=== PATIENT | male | born 1965 | race Caucasian/White ===

== ENCOUNTER 2016-08-07 20:02 | Emergency (ER) | payer MEDICAID ==
[2016-08-07] MEDS ORDERED: ASPIRIN 81 MG TABLET, CHEWABLE PO ONE (20:23)
--- NOTE | 2016-08-07 20:23 | ER Document Report ---
ED Medical Screen (RME) - General Stated Complaint: RIGHT SHOULDER PAIN Notes: 50 yo male c/o right shoulder pain since this afternoon. lifted arm to get into shirt, felt a pop with acute pain to anterior shoulder. Also c/o heaviness in chest x 2 weeks. Feels like he's drowning. intermittant left sided chest pain. + smoker. mild cough. + hx/o HTN, DM ne meds. 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 TRAVEL OUTSIDE OF THE [place] IN LAST 30 DAYS: No - Related Data Allergies/Adverse Reactions: Penicillins Allergy (Verified 02/24/15 21:53) Anaphylaxis Sulfa (Sulfonamide Antibiotics) Allergy (Verified 02/24/15 21:53) EYE SWELLING Past Medical History - Past Medical History Cardiac Medical History: Reports: Hx Hypercholesterolemia, Hx Hypertension Endocrine Medical History: Reports: Hx Diabetes Mellitus Type 2 Psychiatric Medical History: Reports: Hx Depression Past Surgical History: Reports: Hx Appendectomy, Hx Bowel Surgery, Hx Cholecystectomy, Hx Neurologic Surgery, Hx Orthopedic Surgery - spine, Hx Tonsillectomy - Immunizations Hx Diphtheria, Pertussis, Tetanus Vaccination: Yes
--- NOTE | 2016-08-07 21:45 | EKG REPORT ---
SEVERITY:- ABNORMAL ECG - SINUS TACHYCARDIA LVH WITH IVCD, LAD AND SECONDARY REPOL ABNRM : Confirmed by: Peyton Newby 07-Aug-2016 21:44:21
[2016-08-07 21:48] LABS: ABSOLUTE BASOPHILS # (AUTO) 0.1 10^3/uL (0.0-0.2); ABSOLUTE EOSINOPHILS # (AUTO) 0.1 10^3/uL (0.0-0.6); ABSOLUTE LYMPHOCYTES (AUTO) 3.3 10^3/uL (0.5-4.7); ABSOLUTE MONOCYTES (AUTO) 0.9 10^3/uL (0.1-1.4); ABSOLUTE NEUT (AUTO) 12.3 10^3/uL (1.7-8.2); BASOPHILS % (AUTO) 0.7 % (0-2); EOSINOPHILS % (AUTO) 0.6 % (0-6); HEMATOCRIT 50.2 % (37.9-51.0); HEMOGLOBIN 16.7 g/dL (13.5-17.0); HGB HCT DIFFERENCE -0.1; LYMPHOCYTES % (AUTO) 19.6 % (13-45); MEAN CORPUSCULAR HEMOGLOBIN 28.5 pg (27.0-33.4); MEAN CORPUSCULAR HGB CONC 33.2 g/dL (32.0-36.0); MEAN CORPUSCULAR VOLUME 86 fl (80-97); MONOCYTES % (AUTO) 5.4 % (3-13); RED BLOOD COUNT 5.86 10^6/uL (4.35-5.55); SEGMENTED NEUTROPHILS % (AUTO) 73.7 % (42-78); WHITE BLOOD COUNT 16.7 10^3/uL (4.0-10.5)
[2016-08-07] MEDS ORDERED: OXYCODONE-ACETAMINOPHEN 5-325 MG TABLET PO ONE (21:51)
--- NOTE | 2016-08-07 21:57 | ER Document Report ---
ED Extremity Problem, Upper - General Mode of Arrival: Ambulatory Information source: Patient TRAVEL OUTSIDE OF THE [place] IN LAST 30 DAYS: No - HPI Patient complains to provider of: Pain Onset: This afternoon Recent injury: Possibly Where: Indoors - Putting on shirt. Exacerbated by: Movement <JONATHAN MORA - Last Filed: 08/08/16 02:48> <CHUCK SHERSTHA - Last Filed: 08/08/16 03:43> - General Chief Complaint: Shoulder Pain Stated Complaint: RIGHT SHOULDER PAIN Notes: Patient is a 50-year-old male presenting to the emergency department concerned of right shoulder pain onset approximately noon when he was trying to put on a shirt and hurt his shoulder crack. Patient states the pain is and stent. Patient also states that he has had chest tightness for the past 3-4 weeks, but this is not unusual for him. Patient has a history of stroke in January 2002 and associated left-sided weakness. Patient states that he takes pain medication from pain management for his chronic back pain. (JONATHAN MORA) - Related Data Allergies/Adverse Reactions: Penicillins Allergy (Verified 08/07/16 20:23) Anaphylaxis Sulfa (Sulfonamide Antibiotics) Allergy (Verified 08/07/16 20:23) EYE SWELLING Past Medical History - General Information source: Patient - Social History Smoking Status: Current Every Day Smoker Cigarette use (# per day): Yes Chew tobacco use (# tins/day): No Frequency of alcohol use: Occasional Drug Abuse: None Family History: Reviewed & Not Pertinent Patient has suicidal ideation: No Patient has homicidal ideation: No - Past Medical History Cardiac Medical History: Reports: Hx Hypercholesterolemia, Hx Hypertension Neurological Medical History: Reports: Hx Cerebrovascular Accident Endocrine Medical History: Reports: Hx Diabetes Mellitus Type 2 Renal/ Medical History: Denies: Hx Peritoneal Dialysis Psychiatric Medical History: Reports: Hx Depression Past Surgical History: Reports: Hx Appendectomy, Hx Bowel Surgery, Hx Cholecystectomy, Hx Neurologic Surgery, Hx Orthopedic Surgery - spine, Hx Tonsillectomy - Immunizations Hx Diphtheria, Pertussis, Tetanus Vaccination: Yes <JONATHAN MORA - Last Filed: 08/08/16 02:48> Review of Systems - Review of Systems Constitutional: No symptoms reported EENT: No symptoms reported Cardiovascular: See HPI, Other - Chest tightness (not unusual for patient) Respiratory: No symptoms reported Gastrointestinal: No symptoms reported Genitourinary: No symptoms reported Male Genitourinary: No symptoms reported Musculoskeletal: See HPI, Other - Right shoulder pain Skin: No symptoms reported Hematologic/Lymphatic: No symptoms reported Neurological/Psychological: No symptoms reported -: Yes All other systems reviewed and negative <JONATHAN MORA - Last Filed: 08/08/16 02:48> Physical Exam - Vital signs Interpretation: Hypertensive, Tachycardic - General General appearance: Alert - HEENT Head: Normocephalic, Atraumatic Eyes: Normal Pupils: PERRL - Respiratory Respiratory status: No respiratory distress Chest status: Nontender Breath sounds: Normal Chest palpation: Normal - Cardiovascular Rhythm: Regular Heart sounds: Normal auscultation Murmur: No - Abdominal Inspection: Normal Distension: No distension Bowel sounds: Normal Tenderness: Nontender Organomegaly: No organomegaly - Back Back: Normal, Nontender - Extremities General lower extremity: Normal inspection, Nontender, Normal color, Normal ROM , Normal temperature Shoulder: Tender - Right shoulder tenderness to palpation. No: Limited ROM - Neurological Neuro grossly intact: Yes Cognition: Normal [place] Coma Scale Eye Opening: Spontaneous [place] Coma Scale Verbal: Oriented [place] Coma Scale Motor: Obeys Commands [place] Coma Scale Total: 15 Speech: Normal - Psychological Associated symptoms: Normal affect, Normal mood - Skin Skin Temperature: Warm Skin Moisture: Dry Skin Color: Normal <JONATHAN MORA - Last Filed: 08/08/16 02:48> Course - Laboratory Result Diagrams: 08/07/16 21:00 08/07/16 22:55 - Consults [facility] Time consulted: 00:25 - Called to transfer patient Dr. Mendoza Time consulted: 01:08 <JONATHAN MORA - Last Filed: 08/08/16 02:48> - Laboratory Result Diagrams: 08/07/16 21:00 08/07/16 22:55 - Diagnostic Test Radiology reviewed: Reports reviewed - EKG Interpretation by Al EKG shows normal: Sinus rhythm Rate: Normal Rhythm: NSR <CHUCK SHRESTHA - Last Filed: 08/08/16 03:43> - Re-evaluation Re-evalutation: 08/08/16 03:41 Patient presents with shoulder pain and ongoing chest pain for the last 3 weeks. No acute findings on x-rays. LVH on EKG. Patient's chest pain resolved after 3 sublingual nitroglycerin. Patient has a history of CVA, hypertension, high cholesterol, and diabetes. Patient has not had any workup for chest pain. Patient was found to have a troponin of 0.3. Repeat is 0.33. Concern is a patient is having unstable angina/NSTEMI. Patient was discussed with Dr. Mendoza at [facility] except the patient for transfer. Recommends Plavix, Lovenox. Patient is already been given aspirin. Patient agrees with this plan. Stable at the time of transfer. Grateful for care. Of note, EKG has been repeated 3 times with no change. (CHUCK SHRESTHA) - Vital Signs Vital signs: Temp Pulse Resp BP Pulse Ox 98.0 F 103 H 20 155/109 H 94 08/07/16 20:18 08/07/16 20:18 08/08/16 02:01 08/08/16 02:00 08/08/16 02:01 - Laboratory Laboratory results interpreted by ut: 08/07/16 08/07/16 08/07/16 21:00 22:55 22:55 WBC 16.7 H RBC 5.86 H Absolute Neutrophils 12.3 H Chloride 97 L Glucose 255 H Calcium 10.4 H Urine Glucose (UA) >=500 H - Consults Dr. Mendoza Reason for consultation: 08/08/16 01:[address] Mendoza about patient's case. Dr. Mendoza agrees to accept the pation, but wants repeat cardiac enzymes so that he can know where to put the patient. 08/08/16 02:[address] Mendoza to give the results of the repeat cardiac enzymes. [facility] agrees to accept the patient. (JONATHAN MORA) Critical Care Note - Critical Care Note Total time excluding time spent on procedures (mins): 45 - evaluation and management of chest pain, multiple re-evaluations, coordination with transfer to tertiary care, counseling of patient, multiple re-evaluations <CHUCK SHRESTHA - Last Filed: 08/08/16 03:43> Discharge <JONATHAN MORA - Last Filed: 08/08/16 02:48> <CHUCK SHRESTHA - Last Filed: 08/08/16 03:43> - Discharge Clinical Impression: NSTEMI (non-ST elevated myocardial infarction) Shoulder pain, right Qualifiers: Chronicity: acute Qualified Code(s): M25.511 - Pain in right shoulder Condition: Stable Disposition: [facility] Kessler Attestation: 08/08/16 03:43 I personally performed the services described in the documentation, reviewed and edited the documentation which was dictated to the scribe in my presence, and it accurately records my words and actions. (CHUCK SHRESTHA) Scribe Documentation - Scribe Written by Scribe:: Jonathan Mora 08/07/2016 2153 acting as scribe for :: Joey <JONATHAN MORA - Last Filed: 08/08/16 02:48>
[2016-08-07 23:10] LABS: APPEARANCE,URINE CLEAR; BILIRUBIN,URINE NEGATIVE (NEGATIVE); GLUCOSE, URINE >=500 mg/dL (NEGATIVE); KETONES,URINE NEGATIVE (NEGATIVE); LEUKOCYTE ESTERASE,URINE NEGATIVE (NEGATIVE); NITRITE,URINE NEGATIVE (NEGATIVE); PROTEIN,URINE NEGATIVE (NEGATIVE); URINE SPECIFIC GRAVITY 1.006; UROBILINOGEN,URINE NEGATIVE mg/dL (<2.0)
[2016-08-07 23:28] LABS: ALANINE AMINOTRANSFERASE 21 U/L (21-72); ALBUMIN 4.4 g/dL (3.5-5.0); ALKALINE PHOSPHATASE 89 U/L (38-126); ANION GAP 11 (5-19); ASPARTATE AMINO TRANSFERASE 21 U/L (17-59); BILIRUBIN,TOTAL 0.9 mg/dL (0.2-1.3); BLOOD UREA NITROGEN 8 mg/dL (7-20); CALCIUM 10.4 mg/dL (8.4-10.2); CARBON DIOXIDE 30 mmol/L (22-30); CHLORIDE 97 mmol/L (98-107); CREATINE KINASE 56 U/L (55-170); CREATININE RESULT 0.58 mg/dL (0.52-1.25); GLUCOSE 255 mg/dL (75-110); LIPASE 61.3 U/L (23-300); POTASSIUM 3.9 mmol/L (3.6-5.0); SODIUM 138.2 mmol/L (137-145); TOTAL PROTEIN 7.7 g/dL (6.3-8.2)
[2016-08-07 23:39] LABS: CREATINE KINASE MB 1.57 ng/mL (<4.55)
[2016-08-07 23:44] LABS: TROPONIN I 0.302 ng/mL
[2016-08-08] MEDS ORDERED: NITROGLYCERIN 0.4 MG/TAB 25 TAB/BOTTLE SL PRN (00:02)
[2016-08-08] MEDS ORDERED: ASPIRIN 81 MG TABLET, CHEWABLE ONE (00:11)
[2016-08-08 02:21] LABS: CREATINE KINASE MB 1.49 ng/mL (<4.55); TROPONIN I 0.335 ng/mL
[2016-08-08] MEDS ORDERED: ENOXAPARIN SODIUM INJ 100 MG/1 ML DISP.SYRIN SUBCUT ONE (02:43)
[2016-08-08] MEDS ORDERED: CLOPIDOGREL BISULFATE 300 MG TABLET PO ONE (02:44)
--- NOTE | 2016-08-08 07:41 | ER Document Report ---
Doctor's Note Notes: 08/08/16 07:39 Patient's care was turned over to me this morning. He is waiting transfer to [facility] for chest pain with elevated troponins. He is asleep at this time. He has removed the monitor connections and blood pressure cuff. Review of his vital signs shows his blood pressure has been quite high during his stay here and he has not received any medication for that blood pressure. I requested he be put back on the monitor so I can see what his blood pressure and pulse are at this time and treat his elevated blood pressure prior to transfer. The patient was awakened by the nurse to put the monitoring equipment back on. The patient is complaining of pain in his shoulder. He will be given Lopressor and fentanyl for her blood pressure and pain. Transport is due to arrive in the next few minutes.
[2016-08-08] MEDS ORDERED: METOPROLOL TARTRATE PF/INJ 5 MG/5 ML SDV IV ONE (07:44)
[2016-08-08] MEDS ORDERED: FENTANYL CITRATE INJ/PF 100 MCG/2 ML AMPUL IV ONE (07:44)
[2016-08-08] MEDS ORDERED: ONDANSETRON HCL INJ/PF 4 MG/2 ML SDV IV ONE (07:45)
[2016-08-08] MEDS ORDERED: CLOPIDOGREL BISULFATE 300 MG TABLET ONE (07:50)
--- NOTE | 2016-08-08 10:23 | EKG REPORT ---
SEVERITY:- ABNORMAL ECG - SINUS RHYTHM PROBABLE LEFT ATRIAL ABNORMALITY LVH WITH IVCD, LAD AND SECONDARY REPOL ABNRM : Confirmed by: Peyton Newby 08-Aug-2016 10:22:06
[2016-08-09 17:04] VITALS: BP 180/110
== END 2016-08-08 08:05 | disposition short-term general hospital (02) ==
LOC: ER 20:02
DX: I21.4 Non-ST elevation (NSTEMI) myocardial infarction (principal); M25.511 Pain in right shoulder; R07.89 Other chest pain; I51.7 Cardiomegaly; R00.0 Tachycardia, unspecified; I10 Essential (primary) hypertension; E11.9 Type 2 diabetes mellitus without complications; F17.210 Nicotine dependence, cigarettes, uncomplicated; I69.354 Hemiplegia and hemiparesis following cerebral infarction affecting left non-dominant side; M54.9 Dorsalgia, unspecified; G89.29 Other chronic pain; Z79.899 Other long term (current) drug therapy; Z88.2 Allergy status to sulfonamides; Z87.892 Personal history of anaphylaxis; Z88.0 Allergy status to penicillin
CPT/HCPCS: 93005 ×2; 99291; 96374; 96375; 36415; 82553; 82550; 83690; 85025; 80053; 81001; 84484; 71020; 73030; 93010 ×2; J3490 ×3; J3010; J2405; J1650

== ENCOUNTER 2018-07-23 10:18 | Inpatient (IN) | payer MEDICARE ==
[2018-07-23] MEDS ORDERED: NORMAL SALINE 500 ML IV ONE (11:28)
[2018-07-23 12:22] LABS: HEMOGLOBIN 12.8 g/dL (13.5-17.0); MEAN CORPUSCULAR HEMOGLOBIN 28.4 pg (27.0-33.4); MEAN CORPUSCULAR HGB CONC 33.7 g/dL (32.0-36.0); MEAN CORPUSCULAR VOLUME 84 fl (80-97); PLATELET COUNT 349 10^3/uL (150-450); RED CELL DISTRIBUTION WIDTH 13.6 % (11.5-14.0); WHITE BLOOD COUNT 22.3 10^3/uL (4.0-10.5)
--- NOTE | 2018-07-23 12:33 | RADIOLOGY REPORT (SQ) ---
EXAM DESCRIPTION: FOOT RIGHT COMPLETE COMPLETED DATE/TIME: 07/23/2018 12:24 pm REASON FOR STUDY: eval for osteomyelitis COMPARISON: None. NUMBER OF VIEWS: Three views. TECHNIQUE: AP, lateral and oblique radiographic images acquired of the right foot. LIMITATIONS: None. FINDINGS: MINERALIZATION: Normal. BONES: No acute fracture or dislocation. No worrisome bone lesions. JOINTS: No effusions. SOFT TISSUES: No soft tissue swelling. No foreign body. OTHER: No other significant finding. IMPRESSION: NEGATIVE STUDY OF THE RIGHT FOOT. NO RADIOGRAPHIC EVIDENCE OF ACUTE INJURY. TECHNICAL DOCUMENTATION: JOB ID: [id number] [employer]- All Rights Reserved Reading location - IP/workstation name: [email or web address]
[2018-07-23 12:55] LABS: ALANINE AMINOTRANSFERASE 11 U/L (21-72); ALBUMIN 4.3 g/dL (3.5-5.0); ALKALINE PHOSPHATASE 122 U/L (38-126); ANION GAP 9 (5-19); ASPARTATE AMINO TRANSFERASE 19 U/L (17-59); BILIRUBIN,DIRECT 0.2 mg/dL (0.0-0.4); BILIRUBIN,TOTAL 0.4 mg/dL (0.2-1.3); BLOOD UREA NITROGEN 12 mg/dL (7-20); C-REACTIVE PROTEIN 50.8 mg/L (<10.0); CALCIUM 9.3 mg/dL (8.4-10.2); CARBON DIOXIDE 31 mmol/L (22-30); CHLORIDE 97 mmol/L (98-107); GLUCOSE 217 mg/dL (75-110); POTASSIUM 4.1 mmol/L (3.6-5.0); TOTAL PROTEIN 7.7 g/dL (6.3-8.2)
[2018-07-23] MEDS ORDERED: VANCOMYCIN HCL INJ 1000 MG VIAL IV ONE (13:02)
[2018-07-23] MEDS ORDERED: MEROPENEM 1 GM VIAL IV ONE (13:02)
[2018-07-23 13:16] LABS: ABSOLUTE LYMPHOCYTES# (MANUAL) 1.8 10^3/uL (0.5-4.7); ABSOLUTE MONOCYTES # (MANUAL) 1.3 10^3/uL (0.1-1.4); ABSOLUTE NEUTROPHILS# (MANUAL) 19.2 10^3/uL (1.7-8.2); BASOPHILS % (MANUAL) 0 % (0-2); EOSINOPHILS % (MANUAL) 0 % (0-6); LYMPHOCYTES % (MANUAL) 8 % (13-45); MONOCYTES % (MANUAL) 6 % (3-13); SEGMENTED NEUTROPHILS % (MAN) 86 % (42-78); TOTAL CELLS COUNTED 100
--- NOTE | 2018-07-23 13:19 | ER Document Report ---
ED General - General Chief Complaint: Skin Problem Stated Complaint: TOE PROBLEM Time Seen by Provider: 07/23/18 11:20 Primary Care Provider: JUNE SAWANT FNP-C [Primary Care Provider] - Follow up as needed TRAVEL OUTSIDE OF THE [place] IN LAST 30 DAYS: No - HPI Notes: Patient presents to the emergency department for evaluation of a right foot infection. He states he has had a wound on his right fifth foot for approximately 1 month. He states is been worse over the last 2-3 days. He has wounds to his second and third toes from his dog stepping on his foot as well. He has had increased redness and low-grade fevers recently. He has no idea what his blood sugars been running. He has been compliant with his medications. - Related Data Allergies/Adverse Reactions: Penicillins Allergy (Verified 08/07/16 20:23) Anaphylaxis Sulfa (Sulfonamide Antibiotics) Allergy (Verified 08/07/16 20:23) EYE SWELLING Past Medical History - General Information source: Patient, Relative - Spouse - Social History Smoking Status: Current Every Day Smoker Chew tobacco use (# tins/day): No Drug Abuse: None Family History: Reviewed & Not Pertinent Patient has suicidal ideation: No Patient has homicidal ideation: No - Past Medical History Cardiac Medical History: Reports: Hx Hypercholesterolemia, Hx Hypertension Neurological Medical History: Reports: Hx Cerebrovascular Accident Endocrine Medical History: Reports: Hx Diabetes Mellitus Type 2 Renal/ Medical History: Denies: Hx Peritoneal Dialysis Psychiatric Medical History: Reports: Hx Depression Past Surgical History: Reports: Hx Appendectomy, Hx Bowel Surgery, Hx Cardiac Surgery, Hx Cholecystectomy, Hx Neurologic Surgery, Hx Orthopedic Surgery - spine, Hx Tonsillectomy - Immunizations Hx Diphtheria, Pertussis, Tetanus Vaccination: Yes Review of Systems - Review of Systems Constitutional: Chills, Fever Musculoskeletal: See HPI Skin: See HPI -: Yes All other systems reviewed and negative Physical Exam - Vital signs Vitals: Temp Pulse Resp BP Pulse Ox 99.1 F 98 14 152/88 H 98 07/23/18 10:26 07/23/18 10:26 07/23/18 10:26 07/23/18 10:26 07/23/18 10:26 Interpretation: Hypertensive - Notes Notes: Vital signs reviewed, please refer to chart. Patient is normocephalic, atraumatic. Pupils equal round, reactive to light. Neck is supple without meningismus. Heart is regular rate and rhythm. Lungs are clear to auscultation bilaterally. Abdomen is soft, nontender, normoactive bowel sounds throughout. Extremities without cyanosis, clubbing. Peripheral pulses are equal. Skin is warm and dry. Patient is awake, alert, neurological exam is nonfocal. Lamination of the right lower extremity is 2+ pitting edema to the pretibial region. Posterior calf is nontender. He has significant maceration and erythema over the fifth toe with diminished sensation. He has erythema that tracks up to the lateral malleolus. He has small superficial wounds noted on the dorsum of the second and third digits of the right foot. Dorsalis pedis pu lses 1+. Course - Re-evaluation Re-evalutation: 07/23/18 13:34 Patient presents to the emergency department for evaluation of an obvious foot infection. He obviously has a cellulitis but I am concerned about the possibility of an osteomyelitis. He has a markedly elevated white count. CRP is elevated to 50. X-rays failing to show any signs of acute osteomyelitis, but of course this is not significantly sensitive. He is penicillin allergic so medicated here with Merrem and vancomycin. Blood cultures are pending at this time. Will admit him for further care. - Vital Signs Vital signs: Temp Pulse Resp BP Pulse Ox 99.1 F 98 14 152/88 H 98 07/23/18 10:26 07/23/18 10:26 07/23/18 10:26 07/23/18 10:26 07/23/18 10:26 - Laboratory Result Diagrams: 07/23/18 12:00 07/23/18 12:00 Laboratory results interpreted by me: 07/23/18 07/23/18 12:00 12:00 WBC 22.3 H Hgb 12.8 L Seg Neuts % (Manual) 86 H Lymphocytes % (Manual) 8 L Abs Neuts (Manual) 19.2 H Chloride 97 L Carbon Dioxide 31 H Glucose 217 H ALT 11 L C-Reactive Protein 50.8 H - Diagnostic Test Radiology reviewed: Reports reviewed - No evidence for osteomyelitis Discharge - Discharge Clinical Impression: Diabetic foot infection Cellulitis Qualifiers: Site of cellulitis of extremity: lower extremity Condition: Stable Disposition: ADMITTED INPATIENT Admitting Provider: Hospitalist - [facility] Unit Admitted: Medical Floor Referrals: GILBERT,STORMY, PROGRAM CHECKER-C [Primary Care Provider] - Follow up as needed
[2018-07-23 13:21] LABS: TOXIC GRANULATION SLIGHT; TOXIC VACUOLATION PRESENT
[2018-07-23 13:22] LABS: PLATELET COMMENT ADEQUATE; RBC MORPHOLOGY COMMENT NORMO-CYTIC/CHROMIC
[2018-07-23] MEDS ORDERED: OXYCODONE-ACETAMINOPHEN 5-325 MG TABLET PO PRN (15:59)
[2018-07-23] MEDS ORDERED: ONDANSETRON 4 MG TAB.RAPDIS PO PRN (15:59)
[2018-07-23] MEDS ORDERED: ACETAMINOPHEN 325 MG TABLET PO PRN (15:59)
--- NOTE | 2018-07-23 16:27 | PDOC H&P ---
History of Present Illness Admission Date/PCP: 07/23/18 14:04 FLAVIA PIPER Patient complains of: DIABETIC FOOT INFECTION History of Present Illness: ANNE-MARIE AGUDELO is a 52 year old male with a PMH of CAD, diabetes, CVA, 5 vessel CABG, HTN, HLD, chronic back pain. The patient presented to [facility] with a 3-week history of an open wound to the right fifth toe. The patient states he attempted to treat the wound at home using [id number] antibiotic ointment. He states his wound became 'necrotic' 2 days ago, which prompted him to come to the emergency department. Laboratory studies indicative of leukocytosis (WBC 22). Remaining studies, including CBC and chemistry are relatively benign. X- ray of right foot is normal, no evidence of osteomyelitis. The patient was empirically treated with vancomycin IV and meropenem IV in the emergency department. Upon assessment, the patient is resting comfortably in bed. He endorses mild pain to the right toe, states his pain is exacerbated upon ambulation. There is mild erythema to the dorsal aspect of the right foot. A sizable wound covers the anterior surface of the right fifth toe. There appears to be eschar vs. necrosis to the wound. There is no visible drainage. The wound is not malodorous. Plan to consult Ortho surgery and admit to hospitalist service for infected diabetic ulcer. Past Medical History Past Medical History: CHRONIC BACK PAIN. Cardiac Medical History: Reports: Coronary Artery Disease, Hyperlipidema, Hypertension Neurological Medical History: Reports: Ischemic CVA Endocrine Medical History: Reports: Diabetes Mellitus Type 2 Psychiatric Medical History: Reports: Depression Past Surgical History Past Surgical History: Reports: Appendectomy, Cholecystectomy, Coronary Artery Bypass Graft - 5 VESSEL, Orthopedic Surgery - spine, Tonsillectomy Social History Information Source: Patient Lives with: Family Smoking Status: Current Every Day Smoker Cigarettes Packs Per Day: 2 Number of Years Smokin Frequency of Alcohol Use: None Hx Recreational Drug Use: No Hx Prescription Drug Abuse: No - Advance Directive Resuscitation Status: Full Code Family History Family History: CAD, DM Parental Family History Reviewed: Yes Children Family History Reviewed: Yes Sibling(s) Family History Reviewed.: Yes Medication/Allergy Home Medications: Acetaminophen [Tylenol 325 mg Tablet] 325 mg PO Q6HP PRN 07/23/18 Aspirin [Aspirin 325 mg Tablet] 325 mg PO QHS 07/23/18 Atorvastatin Calcium [Lipitor 20 mg Tablet] 20 mg PO QHS 07/23/18 Carvedilol [Coreg 6.25 mg Tablet] 6.25 mg PO Q12 07/23/18 Cetirizine HCl [Zyrtec 10 mg Tablet] 1 tab PO DAILY 07/23/18 Furosemide [Lasix 40 mg Tablet] 40 mg PO QAM 07/23/18 Glipizide [Glocotrol 10 Mg Tablet] 10 mg PO DAILY 07/23/18 Linaclotide [Linzess 145 Mcg Capsule] 145 mcg PO DAILY 07/23/18 Lisinopril [Prinivil] 20 mg PO DAILY 07/23/18 Magnesium 250 mg PO BID 07/23/18 Metformin HCl 1,000 mg PO BID 07/23/18 Mv-Mn/Herb 208/Beta-Sitosterol [Urinozinc Prostate Formula Tab] 100 mg PO BID 07/23/18 Nicotine [Nicoderm 21 mg/24 Hr Transderm Patch] 1 patch TD DAILY 07/23/18 Oxycodone HCl 15 mg PO QIDP PRN 07/23/18 Potassium Chloride [Klor-Con M20] 20 meq PO BID 07/23/18 Pregabalin [Lyrica 100 Mg Capsule] 100 mg PO TID 07/23/18 Sertraline HCl [Zoloft 50 mg Tablet] 50 mg PO QHS 07/23/18 Sitagliptin Phosphate [Januvia] 100 mg PO DAILY 07/23/18 Tamsulosin HCl [Flomax 0.4 mg Cap.sr] 0.4 mg PO DAILY 07/23/18 Allergies/Adverse Reactions: Penicillins Allergy (Verified 08/07/16 20:23) Anaphylaxis Sulfa (Sulfonamide Antibiotics) Allergy (Verified 08/07/16 20:23) EYE SWELLING Review of Systems All systems: reviewed and no additional remarkable complaints except as stated Physical Exam Vital Signs: Temp Pulse Resp BP Pulse Ox 99.0 F 87 16 106/53 L 100 07/23/18 15:34 07/23/18 15:34 07/23/18 15:34 07/23/18 15:34 07/23/18 15:34 Intake & Output 07/22/18 07/23/18 07/24/18 06:59 06:59 06:59 Intake Total 500 Balance 500 Weight 108 kg General appearance: PRESENT: obese, well-developed, well-nourished Head exam: PRESENT: atraumatic Eye exam: PRESENT: conjunctiva pink, PERRLA Mouth exam: PRESENT: moist, tongue midline Neck exam: PRESENT: full ROM Respiratory exam: PRESENT: symmetrical, unlabored Cardiovascular exam: PRESENT: +S1, +S2 Pulses: PRESENT: normal radial pulses Vascular exam: PRESENT: normal capillary refill GI/Abdominal exam: ABSENT: distended Rectal exam: PRESENT: deferred Extremities exam: PRESENT: full ROM, pedal edema - Trace edema to the right foot Musculoskeletal exam: PRESENT: ambulatory, full ROM. ABSENT: normal inspection - R 5TH TOE WOUND. ?ESCHAR? ?NECROSIS? Neurological exam: PRESENT: alert, awake, oriented to person, oriented to place, oriented to time, oriented to situation Psychiatric exam: PRESENT: appropriate affect Skin exam: PRESENT: other - ESCHAR VS. NECROSIS ON R 5TH TOE. SURROUNDING ERYTHEMA. ABSENT: intact Results Laboratory Results: 07/23/18 12:00 07/23/18 12:00 07/23/18 07/23/18 12:00 12:00 WBC 22.3 H RBC 4.50 Hgb 12.8 L Hct 38.0 MCV 84 MCH 28.4 MCHC 33.7 RDW 13.6 Plt Count 349 Seg Neutrophils % Not Reportable Lymphocytes % Not Reportable Monocytes % Not Reportable Eosinophils % Not Reportable Basophils % Not Reportable Absolute Neutrophils Not Reportable Absolute Lymphocytes Not Reportable Absolute Monocytes Not Reportable Absolute Eosinophils Not Reportable Absolute Basophils Not Reportable Sodium 137.0 Potassium 4.1 Chloride 97 L Carbon Dioxide 31 H Anion Gap 9 BUN 12 Creatinine 0.68 Est GFR ( Amer) > 60 Est GFR (Non-Af Amer) > 60 Glucose 217 H Calcium 9.3 Total Bilirubin 0.4 AST 19 ALT 11 L Alkaline Phosphatase 122 C-Reactive Protein 50.8 H Total Protein 7.7 Albumin 4.3 Impressions: Foot X-Ray 07/23/18 11:28 IMPRESSION: NEGATIVE STUDY OF THE RIGHT FOOT. NO RADIOGRAPHIC EVIDENCE OF ACUTE INJURY. Status: Imported from PACS Assessment & Plan - Diagnosis (1) Diabetic foot infection Is this a current diagnosis for this admission?: Yes Plan: R 5th toe infection XRAYS show no evidence of osteomyelitis Consult Ortho surgery Initially treated with IV vancomycin and meropenem (+) LeukocytosisWBC 22 Afebrile. Nontoxic-appearing. Admit to med-tele Continue antibiotic treatment with vancomycin and meropenem (2) HTN (hypertension) Qualifiers: Hypertension type: essential hypertension Qualified Code(s): I10 - Essential (primary) hypertension Is this a current diagnosis for this admission?: Yes Plan: H HTN Resume Coreg, Lasix and lisinopril (3) HLD (hyperlipidemia) Is this a current diagnosis for this admission?: Yes Plan: H HLD Resume home dose statin (4) Diabetes Qualifiers: Diabetes mellitus type: type 2 Diabetes mellitus complication status: with circulatory complication Diabetes mellitus complication detail: with other circulatory complications Is this a current diagnosis for this admission?: Yes Plan: [facility] diabetes Accu-Cheks AC at bedtime Diabetic diet Humalog sliding scale Hemoglobin A1c in a.m. Hold home dose metformin and Januvia (5) Tobacco use disorder Is this a current diagnosis for this admission?: Yes Plan: Offer nicotine patch - Time Time Spent: 30 to 50 Minutes Medications reviewed and adjusted accordingly: Yes Anticipated discharge: Home - Inpatient Certification Based on my medical assessment, after consideration of the patient's comorbidities, presenting symptoms, or acuity I expect that the services needed warrant INPATIENT care.: Yes I certify that my determination is in accordance with my understanding of Medicare's requirements for reasonable and necessary INPATIENT services [42 CFR 412.3e].: Yes Medical Necessity: Need for IV Antibiotics, Need for Surgery
[2018-07-23] MEDS ORDERED: VANCOMYCIN HCL 0 MG in DEXTROSE 5%-WATER 250 ML IV NR (16:30)
[2018-07-23] MEDS ORDERED: DEXTROSE 40% GEL 15 GM TUBE PO PRN ×4 (16:36→17:18)
[2018-07-23] MEDS ORDERED: DEXTROSE 50%-WATER 25 GM/50 ML DISP.SYRIN IV PRN ×4 (16:36→17:18)
[2018-07-23] MEDS ORDERED: GLUCAGON,HUMAN RECOMB 1 MG INJ IM PRN (16:36)
[2018-07-23] MEDS ORDERED: GLUCAGON,HUMAN RECOMB 1 MG INJ SUBCUT PRN (17:18)
[2018-07-23] MEDS: PREGABALIN 100 MG CAPSULE PO SCH (17:29)
[2018-07-23] MEDS ORDERED: ENOXAPARIN SODIUM INJ 40 MG/0.4 ML DISP.SYRIN SUBCUT SCH (18:00)
[2018-07-23 20:19] LABS: APPEARANCE,URINE CLEAR; BILIRUBIN,URINE NEGATIVE (NEGATIVE); COLOR,URINE YELLOW; GLUCOSE, URINE 50 mg/dL (NEGATIVE); KETONES,URINE NEGATIVE (NEGATIVE); LEUKOCYTE ESTERASE,URINE NEGATIVE (NEGATIVE); NITRITE,URINE NEGATIVE (NEGATIVE); PROTEIN,URINE NEGATIVE (NEGATIVE); URINE SPECIFIC GRAVITY 1.016; UROBILINOGEN,URINE NEGATIVE mg/dL (<2.0)
[2018-07-23] MEDS: FAMOTIDINE 20 MG TABLET PO SCH (21:18)
[2018-07-23] MEDS: ASPIRIN 325 MG TABLET PO SCH (21:19)
[2018-07-23] MEDS: SERTRALINE HCL 50 MG TABLET PO SCH (21:19)
[2018-07-23] MEDS: ATORVASTATIN CALCIUM 20 MG TABLET PO SCH (21:19)
[2018-07-23] MEDS: MEROPENEM 1 GM in NORMAL SALINE 50 ML IV SCH (21:21)
[2018-07-23] MEDS ORDERED: VANCOMYCIN HCL 1,500 MG in DEXTROSE 5%-WATER 250 ML IV ONE (22:00)
[2018-07-23] MEDS ORDERED: INSULIN LISPRO 100 UNIT/ML 3 ML VIAL SUBCUT SCH (22:00)
--- NOTE | 2018-07-23 22:02 | CONSULTATION REPORT E ---
Consultation Report NAME: ANNE-MARIE AGUDELO : 1965 AGE: 52Y DATE: 07/23/2018 420 A TO: HUANG MCKEON M.D. FROM: HEIDE JACKSON MD Requesting Physician The patient is seen at the request of the hospitalist. CHIEF COMPLAINT: Right great toe infection. The patient is a 52-year-old white male, history of smoking, diabetes mellitus, coronary artery disease, COPD, heavy smoker, who presents to the emergency department with a several day history of right great toe discoloration, right forefoot redness, increasing pain at rest. He was seen in the emergency department, where he was found to have a diabetic infected right great toe by assessment. Surgery was consulted. The patient was admitted to the hospitalist service. Please see admission history and physical for complete past medical and surgical history. PHYSICAL EXAMINATION: The patient is examined at approximately 8:30 p.m. on 07/23/2018. GENERAL: The patient is awake, alert, and oriented x4. His is at bedside and provides the majority of the history. Examination focused on the lower extremities. There is generalized swelling bilaterally. There are palpable femoral pulses bilaterally. Popliteal pulses are very difficult to feel. Both feet are swollen and unable to appreciate pulses. The left foot is warm. The right foot is warm as well with cellulitic changes to the lateral aspect of the right foot. The right 5th toe is ischemic with mostly dry gangrene. The distal forefoot has ischemic change as well. The patient has significant pain in the foot. Toes 2, 3, and 4 on the right side show ischemic changes as well. LABORATORY PROFILE: White blood cell count 22,300. IMPRESSION: ACUTE SUPERIMPOSED ON CHRONIC ISCHEMIA RIGHT FOOT, WITH GANGRENOUS RIGHT 5TH TOE IN PATIENT WITH MULTIPLE COMORBIDITIES INCLUDING PERIPHERAL VASCULAR DISEASE, CORONARY ARTERY DISEASE, DIABETES MELLITUS, AND HEAVY SMOKER. RECOMMENDATIONS: 1. I spoke to the patient and his , as well as the hospitalist on the subsequent phone call. The patient has an ischemic foot, necrotic right 5th toe, all developing, according to the patient and history, over a short period of time. Given the constellation of symptoms, I believe the patient is suffering from significant peripheral vascular disease underlying the acute problem. 2. Due to limited resources at [facility], I have suggested the patient be transferred to a higher level care facility for interventional vascular surgery. The patient's states they would like to go to [place]. Attempts will be made to transfer the patient. 3. In the interim, I have suggested the patient stay NPO, and begin a heparin drip. DICTATING PHYSICIAN: HUANG MCKEON M.D. [id number] PHY#: [id number] ID: [id number] JOB#: [id number] ACCT: [id number] cc:HUANG MCKEON M.D. >
[2018-07-23] MEDS ORDERED: INSULIN REG, HUMAN 100 UNIT/ML 3 ML VIAL (PYX) SUBCUT PRN (22:15)
[2018-07-23] MEDS ORDERED: MORPHINE SULFATE 10 MG/ML INJ IV PRN ×5 (22:18→22:26)
[2018-07-23] MEDS ORDERED: HEPARIN SOD (PORCINE) 1,000 UNIT/ML 10 ML VIAL IV ONE (22:40)
[2018-07-23] MEDS ORDERED: INSULIN GLARGINE,HUM.REC.ANLOG 1,000 UNIT/10 ML UNIT SUBCUT ONE (22:50)
[2018-07-23] MEDS: CARVEDILOL 6.25 MG TABLET PO SCH (22:53)
--- NOTE | 2018-07-23 23:13 | PDOC TRANSFER SUMMARY ---
Addendum entered and electronically signed by CHUCHO DIETRICH NP 07/25/18 12:38: General Admission Date/PCP: 07/23/18 14:04 FLAVIA PIPER Transfer Date: 07/25/18 Accepting Facility: [facility] Accepting Physician: DR. SHIVANI MURRIETA Resuscitation Status: Full Code - Transfer Diagnosis (1) Diabetic foot infection Is this a current diagnosis for this admission?: Yes Diagnosis Summary: DRY GANGRENE TO R 5TH TOE AND ISCHEMIA TO 2,3,4TH TOE PATIENT TREATED WITH A HEPARIN GTT ANTIBIOTIC COVERAGE WITH VANCOMYCIN AND MEROPENEM PLAN TO TRANSFER TO [facility], INSTEAD OF [facility], DUE TO BED AVAILABILITY (2) HTN (hypertension) Is this a current diagnosis for this admission?: Yes (3) HLD (hyperlipidemia) Is this a current diagnosis for this admission?: Yes (4) Diabetes Is this a current diagnosis for this admission?: Yes (5) Tobacco use disorder Is this a current diagnosis for this admission?: Yes - Transfer Medications Home Medications: Acetaminophen [Tylenol 325 mg Tablet] 325 mg PO Q6HP PRN 07/23/18 Aspirin [Aspirin 325 mg Tablet] 325 mg PO QHS 07/23/18 Atorvastatin Calcium [Lipitor 20 mg Tablet] 20 mg PO QHS 07/23/18 Carvedilol [Coreg 6.25 mg Tablet] 6.25 mg PO Q12 07/23/18 Cetirizine HCl [Zyrtec 10 mg Tablet] 1 tab PO DAILY 07/23/18 Furosemide [Lasix 40 mg Tablet] 40 mg PO QAM 07/23/18 Glipizide [Glocotrol 10 Mg Tablet] 10 mg PO DAILY 07/23/18 Linaclotide [Linzess 145 Mcg Capsule] 145 mcg PO DAILY 07/23/18 Lisinopril [Prinivil] 20 mg PO DAILY 07/23/18 Magnesium 250 mg PO BID 07/23/18 Metformin HCl 1,000 mg PO BID 07/23/18 Mv-Mn/Herb 208/Beta-Sitosterol [Urinozinc Prostate Formula Tab] 100 mg PO BID 07/23/18 Nicotine [Nicoderm 21 mg/24 Hr Transderm Patch] 1 patch TD DAILY 07/23/18 Oxycodone HCl 15 mg PO QIDP PRN 07/23/18 Potassium Chloride [Klor-Con M20] 20 meq PO BID 07/23/18 Pregabalin [Lyrica 100 Mg Capsule] 100 mg PO TID 07/23/18 Sertraline HCl [Zoloft 50 mg Tablet] 50 mg PO QHS 07/23/18 Sitagliptin Phosphate [Januvia] 100 mg PO DAILY 07/23/18 Tamsulosin HCl [Flomax 0.4 mg Cap.sr] 0.4 mg PO DAILY 07/23/18 Transfer Medications: Current Medications Acetaminophen (Tylenol 325 Mg Tablet) 650 mg PO Q4HP PRN PRN Reason: FOR PAIN OR TEMP Stop: 08/22/18 15:58 Aspirin (Aspirin 325 Mg Tablet) 325 mg PO QHS [facility] Stop: 08/22/18 21:59 Last Admin: 07/24/18 21:56 Dose: 325 mg Documented by: Atorvastatin Calcium (Lipitor 20 Mg Tablet) 20 mg PO QHS [facility]AN Stop: 08/22/18 21:59 Last Admin: 07/24/18 21:55 Dose: 20 mg Documented by: Carvedilol (Coreg 6.25 Mg Tablet) 6.25 mg PO Q12 [facility] Stop: 08/22/18 21:59 Last Admin: 07/25/18 09:29 Dose: 6.25 mg Documented by: Cetirizine HCl (Zyrtec 10 Mg Tablet) 10 mg PO DAILY [facility] Stop: 08/23/18 09:59 Last Admin: 07/25/18 09:29 Dose: 10 mg Documented by: Dextrose (Dextrose Inj 50% Syringe (25 Gm/50 Ml)) 25 gm IV PRN PRN; Protocol PRN Reason: PER PROTOCOL Stop: 08/22/18 16:35 Dextrose (Dextrose Inj 50% Syringe (25 Gm/50 Ml)) 12.5 gm IV PRN PRN; Protocol PRN Reason: FOR BG 50-69 IN ALERT PATIENT Stop: 08/22/18 16:35 Famotidine (Pepcid 20 Mg Tablet) 20 mg PO Q12 [facility] Stop: 08/22/18 21:59 Last Admin: 07/25/18 09:28 Dose: 20 mg Documented by: Furosemide (Lasix 40 Mg Tablet) 40 mg PO QAM [facility] Stop: 08/23/18 07:59 Last Admin: 07/25/18 09:28 Dose: 40 mg Documented by: Glucagon (Glucagen Inj 1 Mg Vial) 1 mg IM PRN PRN; Protocol PRN Reason: Evaluate for BG < 70 Stop: 08/22/18 16:35 Glucose (Glutose 40% Gel 15 Gm Tube) 15 gm PO PRN PRN; Protocol PRN Reason: FOR BG 50-69 IN ALERT PATIENT Stop: 08/22/18 16:35 Glucose (Glutose 40% Gel 15 Gm Tube) 30 gm PO PRN PRN; Protocol PRN Reason: FOR BG < 50 IN ALERT PATIENT Stop: 08/22/18 16:35 Heparin Sodium (Porcine) (Heparin Inj 1,000 Unit/Ml 10 Ml Vial) 0 - 12,000 unit IV .BOLUS PER PROTOCOL PRN; Protocol PRN Reason: RESPOND TO aPTT VALUE Stop: 08/23/18 01:06 Last Admin: 07/25/18 07:30 Dose: 4,000 units Documented by: Meropenem 1 gm/ Sodium (Chloride) 50 mls @ 100 mls/hr IV Q8 [facility] Stop: 07/30/18 21:59 Last Infusion: 07/25/18 05:53 Dose: Infused Documented by: Vancomycin HCl 1,250 mg/ (Dextrose) 250 mls @ 166.667 mls/hr IV Q8 [facility] Stop: 07/31/18 05:59 Last Infusion: 07/25/18 07:34 Dose: Infused Documented by: Heparin Sodium/Dextrose (Heparin Rtu 25,000 Unit/250 Ml D5w Premix) 25,000 unit in 250 mls @ 0 mls/hr IV CONTINUOUS PRN; Protocol PRN Reason: THIS MED IS NOT "PRN" Stop: 08/22/18 22:04 Last Admin: 07/24/18 20:19 Dose: 12.96 mls/hr, 12.96 mls/hr Documented by: Insulin Glargine (Lantus Insulin Inj 300 Unit/3 Ml Pen) 33 unit SUBCUT QHS [facility] Stop: 08/23/18 21:59 Last Admin: 07/24/18 22:00 Dose: 33 units Documented by: Insulin Human Regular (Humulin R (Pyxis) Insulin 100 Unit/Ml 3ml) 0 - 15 unit SUBCUT ACHSP PRN; Protocol PRN Reason: PER PROTOCOL Stop: 08/22/18 22:14 Last Admin: 07/24/18 21:56 Dose: 4 unit Documented by: Lisinopril (Prinivil 10 Mg Tablet) 20 mg PO DAILY [facility] Stop: 08/23/18 09:59 Last Admin: 07/25/18 09:28 Dose: 20 mg Documented by: Morphine Sulfate (Morphine 10 Mg/Ml Inj) 3 mg IV Q2HP PRN PRN Reason: FOR PAIN SCALE 1-2 Stop: 07/30/18 22:17 Morphine Sulfate (Morphine 10 Mg/Ml Inj) 5 mg IV Q2HP PRN PRN Reason: FOR PAIN SCALE 3-4 Stop: 07/30/18 22:17 Last Admin: 07/25/18 09:49 Dose: 5 mg Documented by: Morphine Sulfate (Morphine 10 Mg/Ml Inj) 7.5 mg IV Q2HP PRN PRN Reason: PAIN SCALE OF 5 Stop: 07/30/18 22:17 Nicotine (Nicoderm 21 Mg/24 Hr Transderm Patch) 1 each TD DAILY [facility] Stop: 08/23/18 09:59 Last Admin: 07/25/18 09:29 Dose: 1 each Documented by: Ondansetron HCl (Zofran Odt 4 Mg Tablet) 4 mg PO Q6HP PRN PRN Reason: FOR NAUSEA/VOMITING Stop: 08/22/18 15:58 Oxycodone HCl (Oxy-Ir 5 Mg Tablet) 15 mg PO Q6HP PRN PRN Reason: FOR PAIN Stop: 07/30/18 22:18 Last Admin: 07/25/18 10:52 Dose: 15 mg Documented by: Potassium Chloride (Klor-Con 10 Meq Capsule Er) 20 meq PO BID [facility] Stop: 08/23/18 09:59 Last Admin: 07/25/18 09:28 Dose: 20 meq Documented by: Pregabalin (Lyrica 100 Mg Capsule) 100 mg PO TID [facility] Stop: 08/22/18 17:59 Last Admin: 07/25/18 09:28 Dose: 100 mg Documented by: Sertraline HCl (Zoloft 50 Mg Tablet) 50 mg PO QHS [facility] Stop: 08/22/18 21:59 Last Admin: 07/24/18 21:55 Dose: 50 mg Documented by: Tamsulosin HCl (Flomax 0.4 Mg Cap.Sr) 0.4 mg PO DAILY [facility] Stop: 08/23/18 09:59 Last Admin: 07/25/18 09:28 Dose: 0.4 mg Documented by: - Allergies Allergies/Adverse Reactions: Penicillins Allergy (Verified 08/07/16 20:23) Anaphylaxis Sulfa (Sulfonamide Antibiotics) Allergy (Verified 08/07/16 20:23) EYE SWELLING Original Note: General Admission Date/PCP: 07/23/18 14:04 FLAVIA PIPER Accepting Facility: [facility] Resuscitation Status: Full Code - Transfer Diagnosis (1) Gangrene associated with type II diabetes mellitus Is this a current diagnosis for this admission?: Yes Diagnosis Summary: Transfer to [facility] for the services of the hospitalist service and consultation with Dr. Anton Lutz who has agreed to see the patient once transferred. General surgery advised that the patient's vascular status in his right foot is such that he should be seen by a vascular surgeon to achieve the best possible result in management of his gangrenous right fifth toe. Patient is being treated with empiric antibiotic therapy and a low-dose heparin inf usion. (2) Diabetic foot infection Is this a current diagnosis for this admission?: Yes Diagnosis Summary: Patient's foot infection is being managed with IV antibiotics utilizing meropenem and vancomycin. (3) Diabetes mellitus type 2 in obese Is this a current diagnosis for this admission?: Yes Diagnosis Summary: Patient was converted to Lantus utilizing 0.3 units/kg/day as an initial starting dose. He is also on a sliding scale utilizing Humulin regular insulin before meals and at bedtime. (4) HLD (hyperlipidemia) Is this a current diagnosis for this admission?: Yes Diagnosis Summary: Patient is continued on his prehospital statin therapy. (5) HTN (hypertension) Is this a current diagnosis for this admission?: Yes Diagnosis Summary: Patient is continued on his prehospital antihypertensive regiment. (6) Chronic back pain Is this a current diagnosis for this admission?: Yes Diagnosis Summary: Patient is continued on his prehospital chronic back pain control regiment. (7) Tobacco use disorder Is this a current diagnosis for this admission?: Yes Diagnosis Summary: Patient is advised to discontinue smoking and cessation is counseled. Patient is on a nicotine replacement patch as needed. - Transfer Medications Home Medications: Acetaminophen [Tylenol 325 mg Tablet] 325 mg PO Q6HP PRN 07/23/18 Aspirin [Aspirin 325 mg Tablet] 325 mg PO QHS 07/23/18 Atorvastatin Calcium [Lipitor 20 mg Tablet] 20 mg PO QHS 07/23/18 Carvedilol [Coreg 6.25 mg Tablet] 6.25 mg PO Q12 07/23/18 Cetirizine HCl [Zyrtec 10 mg Tablet] 1 tab PO DAILY 07/23/18 Furosemide [Lasix 40 mg Tablet] 40 mg PO QAM 07/23/18 Glipizide [Glocotrol 10 Mg Tablet] 10 mg PO DAILY 07/23/18 Linaclotide [Linzess 145 Mcg Capsule] 145 mcg PO DAILY 07/23/18 Lisinopril [Prinivil] 20 mg PO DAILY 07/23/18 Magnesium 250 mg PO BID 07/23/18 Metformin HCl 1,000 mg PO BID 07/23/18 Mv-Mn/Herb 208/Beta-Sitosterol [Urinozinc Prostate Formula Tab] 100 mg PO BID 07/23/18 Nicotine [Nicoderm 21 mg/24 Hr Transderm Patch] 1 patch TD DAILY 07/23/18 Oxycodone HCl 15 mg PO QIDP PRN 07/23/18 Potassium Chloride [Klor-Con M20] 20 meq PO BID 07/23/18 Pregabalin [Lyrica 100 Mg Capsule] 100 mg PO TID 07/23/18 Sertraline HCl [Zoloft 50 mg Tablet] 50 mg PO QHS 07/23/18 Sitagliptin Phosphate [Januvia] 100 mg PO DAILY 07/23/18 Tamsulosin HCl [Flomax 0.4 mg Cap.sr] 0.4 mg PO DAILY 07/23/18 Transfer Medications: Current Medications Acetaminophen (Tylenol 325 Mg Tablet) 650 mg PO Q4HP PRN PRN Reason: FOR PAIN OR TEMP Stop: 08/22/18 15:58 Aspirin (Aspirin 325 Mg Tablet) 325 mg PO QHS [facility] Stop: 08/22/18 21:59 Atorvastatin Calcium (Lipitor 20 Mg Tablet) 20 mg PO QHS [facility] Stop: 08/22/18 21:59 Carvedilol (Coreg 6.25 Mg Tablet) 6.25 mg PO Q12 [facility] Stop: 08/22/18 21:59 Cetirizine HCl (Zyrtec 10 Mg Tablet) 10 mg PO DAILY [facility] Stop: 08/23/18 09:59 Dextrose (Dextrose Inj 50% Syringe (25 Gm/50 Ml)) 25 gm IV PRN PRN; Protocol PRN Reason: PER PROTOCOL Stop: 08/22/18 16:35 Dextrose (Dextrose Inj 50% Syringe (25 Gm/50 Ml)) 12.5 gm IV PRN PRN; Protocol PRN Reason: FOR BG 50-69 IN ALERT PATIENT Stop: 08/22/18 16:35 Enoxaparin Sodium (Lovenox Inj 40 Mg/0.4 Ml Disp.Syrin) 40 mg SUBCUT DAILY [facility] Stop: 08/22/18 17:59 Last Admin: 07/23/18 17:29 Dose: Not Given Documented by: Famotidine (Pepcid 20 Mg Tablet) 20 mg PO Q12 [facility] Stop: 08/22/18 21:59 Furosemide (Lasix 40 Mg Tablet) 40 mg PO QAM [facility] Stop: 08/23/18 07:59 Glucagon (Glucagen Inj 1 Mg Vial) 1 mg IM PRN PRN; Protocol PRN Reason: Evaluate for BG < 70 Stop: 08/22/18 16:35 Glucose (Glutose 40% Gel 15 Gm Tube) 15 gm PO PRN PRN; Protocol PRN Reason: FOR BG 50-69 IN ALERT PATIENT Stop: 08/22/18 16:35 Glucose (Glutose 40% Gel 15 Gm Tube) 30 gm PO PRN PRN; Protocol PRN Reason: FOR BG < 50 IN ALERT PATIENT Stop: 08/22/18 16:35 Meropenem 1 gm/ Sodium (Chloride) 50 mls @ 100 mls/hr IV Q8 [facility] Stop: 07/30/18 21:59 Vancomycin HCl 1,500 mg/ (Dextrose) 250 mls @ 166.667 mls/hr IV NOW ONE Stop: 07/23/18 23:29 Vancomycin HCl 1,250 mg/ (Dextrose) 250 mls @ 166.667 mls/hr IV Q8 [facility] Stop: 07/31/18 05:59 Insulin Human Lispro (Humalog Insulin 100 Unit/1 Ml 3 Ml Vial) 0 - 12 unit SUBCUT ACHS [facility]; Protocol Stop: 08/22/18 21:59 Lisinopril (Prinivil 10 Mg Tablet) 20 mg PO DAILY [facility] Stop: 08/23/18 09:59 Nicotine (Nicoderm 21 Mg/24 Hr Transderm Patch) 1 each TD DAILY [facility] Stop: 08/23/18 09:59 Ondansetron HCl (Zofran Odt 4 Mg Tablet) 4 mg PO Q6HP PRN PRN Reason: FOR NAUSEA/VOMITING Stop: 08/22/18 15:58 Oxycodone/Acetaminophen (Percocet 5-325 Mg Tablet) 2 tab PO Q6HP PRN PRN Reason: FOR PAIN Stop: 07/30/18 15:58 Pregabalin (Lyrica 100 Mg Capsule) 100 mg PO TID [facility] Stop: 08/22/18 17:59 Last Admin: 07/23/18 17:29 Dose: Not Given Documented by: Sertraline HCl (Zoloft 50 Mg Tablet) 50 mg PO QHS [facility] Stop: 08/22/18 21:59 Tamsulosin HCl (Flomax 0.4 Mg Cap.Sr) 0.4 mg PO DAILY [facility] Stop: 08/23/18 09:59 - Allergies Allergies/Adverse Reactions: Penicillins Allergy (Verified 08/07/16 20:23) Anaphylaxis Sulfa (Sulfonamide Antibiotics) Allergy (Verified 08/07/16 20:23) EYE SWELLING Hospital Course Hospital Course: ANNE-MARIE AGUDELO is a 52 year old male with a PMH of CAD, diabetes, CVA, 5 vessel CABG, HTN, HLD, chronic back pain. The patient presented to [facility] with a 3-week history of an open wound to the right fifth toe. The patient states he attempted to treat the wound at home using [id number] antibiotic ointment. He states his wound became 'necrotic' 2 days ago, which prompted him to come to the emergency department. Laboratory studies indicative of leukocytosis (WBC 22). Remaining studies, including CBC and chemistry are relatively benign. X- ray of right foot is normal, no evidence of osteomyelitis. The patient was empirically treated with vancomycin IV and meropenem IV in the emergency department. Patient was seen in consultation by surgery later on the day of admission and recommendation for transfer to a highly qualified vascular surgeon such as Dr. Anton Lutz was made by the general surgical scrub technologist Dr. Moe. Acting upon this recommendation contacts with [facility] were made and the patient was discussed with Dr. Anton Lutz as well as Dr. Ruiz Teixeira. Dr. Teixeira has accepted the patient in transfer for the hospitalist service at [facility] as soon as a bed is available. Physical Exam Vital Signs: Temp Pulse Resp BP Pulse Ox 98.9 F 78 19 115/69 98 02/21/19 16:31 07/23/18 19:00 07/23/18 16:31 07/23/18 16:31 07/23/18 16:31 Intake & Output 07/21/18 07/22/18 07/23/18 23:59 23:59 23:59 Intake Total 500 Balance 500 Weight 108 kg General appearance: PRESENT: no acute distress, cooperative, obese Head exam: PRESENT: atraumatic, normocephalic Eye exam: PRESENT: conjunctiva pink. ABSENT: scleral icterus Mouth exam: PRESENT: dry mucosa, neck supple Neck exam: ABSENT: thyromegaly, tracheal deviation Pulses: PRESENT: other - Dorsalis pedis pulse is nonpalpable on the right. Posterior tibial pulse is also nonpalpable on the right. There is a faintly palpable dorsalis pedis and posterior tibial pulse on the left. There is noted to be edema and erythema of the right foot and ankle with tenderness on palpation. There are several small abrasions noted on dorsal surface of the the right third and fourth toes as well as the medial aspect of the right medial heel/instep area. There is noted to be an eschar formation over the dorsum and lateral aspect of the right fifth toe with significant cyanotic discoloration present within the toe. There is no capillary refill noted on the right fifth toe and there is sluggish capillary refill noted on the right foot. Extremities exam: PRESENT: pedal edema - Right foot Neurological exam: PRESENT: alert, oriented to person, oriented to place, oriented to time, oriented to situation Psychiatric exam: PRESENT: appropriate affect, normal mood Skin exam: PRESENT: other - See above Results Laboratory Results: 07/23/18 12:00 07/23/18 12:00 07/23/18 07/23/18 07/23/18 12:00 12:00 19:42 WBC 22.3 H RBC 4.50 Hgb 12.8 L Hct 38.0 MCV 84 MCH 28.4 MCHC 33.7 RDW 13.6 Plt Count 349 Seg Neutrophils % Not Reportable Lymphocytes % Not Reportable Monocytes % Not Reportable Eosinophils % Not Reportable Basophils % Not Reportable Absolute Neutrophils Not Reportable Absolute Lymphocytes Not Reportable Absolute Monocytes Not Reportable Absolute Eosinophils Not Reportable Absolute Basophils Not Reportable Sodium 137.0 Potassium 4.1 Chloride 97 L Carbon Dioxide 31 H Anion Gap 9 BUN 12 Creatinine 0.68 Est GFR ( Amer) > 60 Est GFR (Non-Af Amer) > 60 Glucose 217 H Calcium 9.3 Total Bilirubin 0.4 AST 19 ALT 11 L Alkaline Phosphatase 122 C-Reactive Protein 50.8 H Total Protein 7.7 Albumin 4.3 Urine Color YELLOW Urine Appearance CLEAR Urine pH 5.0 Ur Specific [place] 1.016 Urine Protein NEGATIVE Urine Glucose (UA) 50 H Urine Ketones NEGATIVE Urine Blood NEGATIVE Urine Nitrite NEGATIVE Ur Leukocyte Esterase NEGATIVE Urine WBC (Auto) 0 Urine RBC (Auto) 0 Impressions: Foot X-Ray 07/23/18 11:28 IMPRESSION: NEGATIVE STUDY OF THE RIGHT FOOT. NO RADIOGRAPHIC EVIDENCE OF ACUTE INJURY. Plan Discharge Plan: Patient be transferred to [facility] in stable condition as soon as a bed is available. Dr. Ruiz Teixeira will be the accepting physician on behalf of the [facility] & hospitalist services. Dr. Anton Lutz has agreed to see the patient in consultation once he has been admitted to [facility]. Time Spent: Greater than 30 Minutes
[2018-07-23 23:38] LABS: ABSOLUTE BASOPHILS # (AUTO) 0.1 10^3/uL (0.0-0.2); ABSOLUTE EOSINOPHILS # (AUTO) 0.2 10^3/uL (0.0-0.6); ABSOLUTE LYMPHOCYTES (AUTO) 2.2 10^3/uL (0.5-4.7); ABSOLUTE MONOCYTES (AUTO) 1.8 10^3/uL (0.1-1.4); BASOPHILS % (AUTO) 0.6 % (0-2); HEMATOCRIT 34.9 % (37.9-51.0); HEMOGLOBIN 11.9 g/dL (13.5-17.0); LYMPHOCYTES % (AUTO) 13.4 % (13-45); MEAN CORPUSCULAR HEMOGLOBIN 28.6 pg (27.0-33.4); MEAN CORPUSCULAR HGB CONC 34.1 g/dL (32.0-36.0); MEAN CORPUSCULAR VOLUME 84 fl (80-97); MONOCYTES % (AUTO) 10.9 % (3-13); PLATELET COUNT 311 10^3/uL (150-450); RED BLOOD COUNT 4.17 10^6/uL (4.35-5.55); RED CELL DISTRIBUTION WIDTH 13.4 % (11.5-14.0); SEGMENTED NEUTROPHILS % (AUTO) 74.1 % (42-78); TOTAL CELLS COUNTED % (AUTO) 100 %; WHITE BLOOD COUNT 16.3 10^3/uL (4.0-10.5)
[2018-07-23 23:47] LABS: INTERNATIONAL RATION (INR) 1.13; PROTHROMBIN TIME 15.1 SEC (11.4-15.4)
[2018-07-23] MEDS ORDERED: INSULIN GLARGINE,HUM.REC.ANLOG 300 UNIT/3 ML INSULN.PEN SUBCUT ONE (23:47)
[2018-07-23 23:48] LABS: PARTIAL THROMBOPLASTIN TIME 35.8 SEC (23.5-35.8)
[2018-07-24] MEDS: HEPARIN SODIUM,PORCINE/D5W 25,000 UNIT/250 ML RTUINJ IV PRN ×2 (00:52→20:19)
[2018-07-24] MEDS ORDERED: HEPARIN SOD (PORCINE) 1,000 UNIT/ML 10 ML VIAL IV PRN (01:07)
[2018-07-24] MEDS: OXYCODONE HCL IR 5 MG TABLET PO PRN ×2 (03:56→20:08)
[2018-07-24 04:01] LABS: HEMATOCRIT 35.9 % (37.9-51.0); HEMOGLOBIN 12.2 g/dL (13.5-17.0); MEAN CORPUSCULAR HEMOGLOBIN 28.4 pg (27.0-33.4); MEAN CORPUSCULAR HGB CONC 34.1 g/dL (32.0-36.0); MEAN CORPUSCULAR VOLUME 83 fl (80-97); PLATELET COUNT 295 10^3/uL (150-450); RED CELL DISTRIBUTION WIDTH 13.6 % (11.5-14.0); WHITE BLOOD COUNT 14.7 10^3/uL (4.0-10.5)
[2018-07-24 04:12] LABS: ALANINE AMINOTRANSFERASE 6 U/L (21-72); ALBUMIN 3.6 g/dL (3.5-5.0); ALKALINE PHOSPHATASE 102 U/L (38-126); ANION GAP 7 (5-19); ASPARTATE AMINO TRANSFERASE 13 U/L (17-59); BILIRUBIN,DIRECT 0.3 mg/dL (0.0-0.4); BILIRUBIN,TOTAL 0.5 mg/dL (0.2-1.3); BLOOD UREA NITROGEN 8 mg/dL (7-20); CARBON DIOXIDE 31 mmol/L (22-30); CHLORIDE 102 mmol/L (98-107); GLUCOSE 158 mg/dL (75-110); POTASSIUM 3.3 mmol/L (3.6-5.0); SODIUM 139.7 mmol/L (137-145); TOTAL PROTEIN 6.7 g/dL (6.3-8.2)
[2018-07-24] MEDS: MEROPENEM 1 GM in NORMAL SALINE 50 ML IV SCH ×3 (05:06→21:07)
[2018-07-24] MEDS: VANCOMYCIN HCL 1,250 MG in DEXTROSE 5%-WATER 250 ML IV SCH ×3 (05:52→22:02)
[2018-07-24] MEDS: MORPHINE SULFATE 10 MG/ML INJ IV PRN (08:09)
[2018-07-24] MEDS: PREGABALIN 100 MG CAPSULE PO SCH ×3 (09:25→17:25)
[2018-07-24] MEDS: FAMOTIDINE 20 MG TABLET PO SCH ×2 (09:26→21:56)
[2018-07-24] MEDS: LISINOPRIL 10 MG TABLET PO SCH (09:26)
[2018-07-24] MEDS: TAMSULOSIN HCL 0.4 MG CAP.SR.24H PO SCH (09:26)
[2018-07-24] MEDS: FUROSEMIDE 40 MG TABLET PO SCH (09:26)
[2018-07-24] MEDS: CETIRIZINE 10 MG TABLET PO SCH (09:26)
[2018-07-24] MEDS: POTASSIUM CHLORIDE 10 MEQ CAPSULE.ER PO SCH ×2 (09:26→17:25)
[2018-07-24] MEDS: NICOTINE 21 MG/24 HR PATCH.TD24 TD SCH (09:27)
[2018-07-24] MEDS: CARVEDILOL 6.25 MG TABLET PO SCH ×2 (09:28→21:59)
[2018-07-24] MEDS ORDERED: (PENDING PHARMACY ID) (Lisinopril [Prinivil] 20 MG) PO SCH (10:00)
[2018-07-24] MEDS ORDERED: ENOXAPARIN SODIUM INJ 30 MG/0.3 ML DISP.SYRIN SUBCUT SCH (10:00)
--- NOTE | 2018-07-24 13:22 | EKG REPORT ---
SEVERITY:- ABNORMAL ECG - SINUS RHYTHM LAFB PROBABLE LVH WITH SECONDARY REPOL ABNRM : Confirmed by: William Rodriguez MD 24-Jul-2018 13:21:27
--- NOTE | 2018-07-24 21:19 | PDOC PROGRESS REPORT ---
Subjective Progress Note for:: 07/24/18 Subjective:: ANNE-MARIE AGUDELO is a 52 year old male with a PMH of CAD, diabetes, CVA, 5 vessel CABG, HTN, HLD, chronic back pain. The patient presented to [facility] with a 3-week history of an open wound to the right fifth toe. The patient was evaluated by surgery, who want to transfer the patient to [place] for evaluation by a vascular surgeon. The patient is currently waiting on transfer. He remains on a heparin gtt. Reason For Visit: DIABETIC FOOT Physical Exam Vital Signs: Temp Pulse Resp BP Pulse Ox 97.7 F 82 18 103/58 L 95 07/24/18 15:28 07/24/18 19:00 07/24/18 15:28 07/24/18 15:28 07/24/18 15:28 Intake & Output 07/23/18 07/24/18 07/25/18 06:59 06:59 06:59 Intake Total 1712 800 Output Total 1850 Balance -138 800 Weight 109 kg General appearance: PRESENT: morbidly obese Eye exam: PRESENT: conjunctiva pink, PERRLA Mouth exam: PRESENT: moist Teeth exam: PRESENT: poor dentation Respiratory exam: PRESENT: symmetrical, unlabored Cardiovascular exam: PRESENT: RRR Pulses: PRESENT: normal radial pulses, normal dorsalis pedis pul Vascular exam: PRESENT: normal capillary refill GI/Abdominal exam: PRESENT: soft Rectal exam: PRESENT: deferred Extremities exam: PRESENT: full ROM, pedal edema - R FOOT Musculoskeletal exam: PRESENT: ambulatory, full ROM. ABSENT: normal inspection Neurological exam: PRESENT: alert, awake, oriented to person, oriented to place, oriented to time, oriented to situation Psychiatric exam: PRESENT: appropriate affect Skin exam: PRESENT: dry, intact, normal color Results Laboratory Results: 07/24/18 03:51 07/24/18 03:51 07/23/18 07/24/18 07/24/18 22:55 03:51 03:51 WBC 16.3 H 14.7 H RBC 4.17 L 4.30 L Hgb 11.9 L 12.2 L Hct 34.9 L 35.9 L MCV 84 83 MCH 28.6 28.4 MCHC 34.1 34.1 RDW 13.4 13.6 Plt Count 311 295 Seg Neutrophils % 74.1 Lymphocytes % 13.4 Monocytes % 10.9 Eosinophils % 1.0 Basophils % 0.6 Absolute Neutrophils 12.0 H Absolute Lymphocytes 2.2 Absolute Monocytes 1.8 H Absolute Eosinophils 0.2 Absolute Basophils 0.1 Sodium 139.7 Potassium 3.3 L Chloride 102 Carbon Dioxide 31 H Anion Gap 7 BUN 8 Creatinine 0.62 Est GFR ( Amer) > 60 Est GFR (Non-Af Amer) > 60 Glucose 158 H Calcium 9.0 Magnesium 2.0 Total Bilirubin 0.5 AST 13 L ALT 6 L Alkaline Phosphatase 102 Total Protein 6.7 Albumin 3.6 Impressions: Foot X-Ray 07/23/18 11:28 IMPRESSION: NEGATIVE STUDY OF THE RIGHT FOOT. NO RADIOGRAPHIC EVIDENCE OF ACUTE INJURY. Assessment & Plan - Diagnosis (1) Diabetic foot infection Is this a current diagnosis for this admission?: Yes Plan: R 5th toe infection XRAYS show no evidence of osteomyelitis Consulted surgery Initially treated with IV vancomycin and meropenem (+) LeukocytosisWBC 14 Afebrile. Nontoxic-appearing. Awaitinf transfer to [place] for evaluation by vascular surgery [facility] the meantime Heparin gtt per surgery Continue antibiotic treatment with vancomycin and meropenem (2) HTN (hypertension) Qualifiers: Hypertension type: essential hypertension Qualified Code(s): I10 - Essential (primary) hypertension Is this a current diagnosis for this admission?: Yes Plan: [facility] HTN Resume Coreg, Lasix and lisinopril (3) HLD (hyperlipidemia) Is this a current diagnosis for this admission?: Yes Plan: [facility] HLD Resume home dose statin (4) Diabetes Qualifiers: Diabetes mellitus type: type 2 Diabetes mellitus complication status: with circulatory complication Diabetes mellitus complication detail: with other circulatory complications Is this a current diagnosis for this admission?: Yes Plan: [facility] diabetes Accu-Cheks AC at bedtime Diabetic diet Humalog sliding scale Hemoglobin A1c in a.m. Hold home dose metformin and Januvia (5) Tobacco use disorder Is this a current diagnosis for this admission?: Yes Plan: Offer nicotine patch - Time Time Spent with patient: 15-24 minutes Medications reviewed and adjusted accordingly: Yes Anticipated [facility]: [facility] Certification Based on my medical assessment, after consideration of the patient's comorbidities, presenting symptoms, or acuity I expect that the services needed warrant INPATIENT care.: Yes I certify that my determination is in accordance with my understanding of Medicare's requirements for reasonable and necessary INPATIENT services [42 CFR 412.3e].: Yes Medical Necessity: Need for IV Antibiotics
[2018-07-24] MEDS: ATORVASTATIN CALCIUM 20 MG TABLET PO SCH (21:55)
[2018-07-24] MEDS: SERTRALINE HCL 50 MG TABLET PO SCH (21:55)
[2018-07-24] MEDS: ASPIRIN 325 MG TABLET PO SCH (21:56)
[2018-07-24] MEDS ORDERED: INSULIN GLARGINE,HUM.REC.ANLOG 300 UNIT/3 ML INSULN.PEN SUBCUT SCH (22:00)
[2018-07-24] MEDS ORDERED: INSULIN GLARGINE,HUM.REC.ANLOG 1,000 UNIT/10 ML UNIT SUBCUT SCH ×2 (22:00)
[2018-07-25] MEDS: OXYCODONE HCL IR 5 MG TABLET PO PRN ×2 (04:42→10:52)
[2018-07-25] MEDS: MEROPENEM 1 GM in NORMAL SALINE 50 ML IV SCH ×2 (05:14→13:10)
[2018-07-25] MEDS: VANCOMYCIN HCL 1,250 MG in DEXTROSE 5%-WATER 250 ML IV SCH (05:54)
[2018-07-25 06:29] LABS: HEMATOCRIT 34.1 % (37.9-51.0); HEMOGLOBIN 11.5 g/dL (13.5-17.0); MEAN CORPUSCULAR HEMOGLOBIN 28.3 pg (27.0-33.4); MEAN CORPUSCULAR HGB CONC 33.8 g/dL (32.0-36.0); MEAN CORPUSCULAR VOLUME 84 fl (80-97); PLATELET COUNT 297 10^3/uL (150-450); RED BLOOD COUNT 4.07 10^6/uL (4.35-5.55); RED CELL DISTRIBUTION WIDTH 13.3 % (11.5-14.0); WHITE BLOOD COUNT 16.7 10^3/uL (4.0-10.5)
[2018-07-25 06:51] LABS: ALANINE AMINOTRANSFERASE 23 U/L (21-72); ALBUMIN 3.2 g/dL (3.5-5.0); ALKALINE PHOSPHATASE 110 U/L (38-126); ANION GAP 8 (5-19); ASPARTATE AMINO TRANSFERASE 12 U/L (17-59); BILIRUBIN,DIRECT 0.2 mg/dL (0.0-0.4); BILIRUBIN,TOTAL 0.4 mg/dL (0.2-1.3); BLOOD UREA NITROGEN 9 mg/dL (7-20); CARBON DIOXIDE 27 mmol/L (22-30); CHLORIDE 101 mmol/L (98-107); GLUCOSE 199 mg/dL (75-110); POTASSIUM 4.1 mmol/L (3.6-5.0); SODIUM 136.1 mmol/L (137-145)
[2018-07-25 06:55] LABS: VANCOMYCIN,TROUGH 13.5 ug/mL (5.0-20.0)
[2018-07-25] MEDS: PREGABALIN 100 MG CAPSULE PO SCH ×2 (09:28→13:47)
[2018-07-25] MEDS: POTASSIUM CHLORIDE 10 MEQ CAPSULE.ER PO SCH (09:28)
[2018-07-25] MEDS: LISINOPRIL 10 MG TABLET PO SCH (09:28)
[2018-07-25] MEDS: FAMOTIDINE 20 MG TABLET PO SCH (09:28)
[2018-07-25] MEDS: FUROSEMIDE 40 MG TABLET PO SCH (09:28)
[2018-07-25] MEDS: TAMSULOSIN HCL 0.4 MG CAP.SR.24H PO SCH (09:28)
[2018-07-25] MEDS: NICOTINE 21 MG/24 HR PATCH.TD24 TD SCH (09:29)
[2018-07-25] MEDS: CETIRIZINE 10 MG TABLET PO SCH (09:29)
[2018-07-25] MEDS: CARVEDILOL 6.25 MG TABLET PO SCH (09:29)
[2018-07-25] MEDS: MORPHINE SULFATE 10 MG/ML INJ IV PRN (09:49)
[2018-07-25 12:52] VITALS: BP 99/58
[2018-07-25] MEDS: HEPARIN SODIUM,PORCINE/D5W 25,000 UNIT/250 ML RTUINJ IV PRN (13:43)
== END 2018-07-25 14:48 | disposition short-term general hospital (02) | DRG 300 ==
LOC: ER 10:18 → EH 14:04 → 4W 16:23
PROVIDERS: ADMIT Hospitalist; ATTEND Hospitalist
DX: E11.52 Type 2 diabetes mellitus with diabetic peripheral angiopathy with gangrene (principal); I96 Gangrene, not elsewhere classified; E11.621 Type 2 diabetes mellitus with foot ulcer; L97.513 Non-pressure chronic ulcer of other part of right foot with necrosis of muscle; I10 Essential (primary) hypertension; G89.29 Other chronic pain; M54.9 Dorsalgia, unspecified; F17.200 Nicotine dependence, unspecified, uncomplicated; I25.10 Atherosclerotic heart disease of native coronary artery without angina pectoris; E87.5 Hyperkalemia; Z79.899 Other long term (current) drug therapy; Z79.82 Long term (current) use of aspirin; Z79.4 Long term (current) use of insulin; Z88.0 Allergy status to penicillin; Z88.2 Allergy status to sulfonamides; Z86.73 Personal history of transient ischemic attack (TIA), and cerebral infarction without residual deficits; Z95.1 Presence of aortocoronary bypass graft
CPT/HCPCS: 36415; 80053; 80202; 81001; 82962; 83036; 83735; 85025; 85027; 85610; 85730; 86140; 87040; 93005; 93010; J1644; J1815; J2185; J2270; J3370; J7040; J7060

== ENCOUNTER 2019-12-17 20:26 | Emergency (ER) | payer MEDICAID, MEDICARE ==
--- NOTE | 2019-12-17 21:21 | ER Document Report ---
ED Medical Screen (RME) - General Chief Complaint: Blood Pressure Problem Stated Complaint: BLOOD PRESSURE CHECK Time Seen by Provider: 12/17/19 21:19 Primary Care Provider: JUNE SAWANT FNP-C [Primary Care Provider] - Follow up as needed Mode of Arrival: Ambulatory Information source: Patient Notes: 54-year-old male presented to ED for complaint of high blood pressure and dizziness and unsteadiness when he gets up. He states he was recently in the hospital from November 20 to November 27 and they decreased a lot of his medications. He states today at home when he first started being dizzy his blood pressure was over 200/100. In the triage area his blood pressure was 161/80. He states when he was in the hospital they had him on dialysis for kidney failure. We will get blood and urine and chest x-ray. I have greeted and performed a rapid initial assessment of this patient. A comprehensive ED assessment and evaluation of the patient, analysis of test results and completion of medical decision making process will be conducted by an additional ED providers. TRAVEL OUTSIDE OF THE [place] IN LAST 30 DAYS: No - Related Data Allergies/Adverse Reactions: Penicillins Allergy (Verified 08/07/16 20:23) Anaphylaxis Sulfa (Sulfonamide Antibiotics) Allergy (Verified 08/07/16 20:23) EYE SWELLING Past Medical History - Past Medical History Cardiac Medical History: Reports: Hx Coronary Artery Disease, Hx Hypercholesterolemia, Hx Hypertension Neurological Medical History: Reports: Hx Cerebrovascular Accident Endocrine Medical History: Reports: Hx Diabetes Mellitus Type 2 Renal/ Medical History: Denies: Hx Peritoneal Dialysis Psychiatric Medical History: Reports: Hx Depression Past Surgical History: Reports: Hx Appendectomy, Hx Bowel Surgery, Hx Cardiac Surgery, Hx Cholecystectomy, Hx Coronary Artery Bypass Graft - 5 VESSEL, Hx Neurologic Surgery, Hx Orthopedic Surgery - spine, Hx Tonsillectomy - Immunizations Hx Diphtheria, Pertussis, Tetanus Vaccination: Yes Physical Exam - Vital signs Vitals: Temp Pulse Resp BP Pulse Ox 98.6 F 93 18 161/80 H 100 12/17/19 20:43 12/17/19 20:43 12/17/19 20:43 12/17/19 20:43 12/17/19 20:43 Course - Vital Signs Vital signs: Temp Pulse Resp BP Pulse Ox 98.6 F 93 18 161/80 H 100 12/17/19 20:43 12/17/19 20:43 12/17/19 20:43 12/17/19 20:43 12/17/19 20:43 Doctor's Discharge - Discharge Referrals: JUNE SAWANT FNP-C [Primary Care Provider] - Follow up as needed
--- NOTE | 2019-12-17 21:57 | RADIOLOGY REPORT (SQ) ---
XR CHEST 2 VIEWS HISTORY: Dizziness high blood pressure. COMPARISON: 08/07/2016 FINDINGS: The heart size is within normal limits. There is no pulmonary vascular congestion. No consolidation, pleural effusion, or pneumothorax is seen. There has been a prior median sternotomy. IMPRESSION: No evidence of acute cardiopulmonary disease.
[2019-12-17 22:59] LABS: APPEARANCE,URINE CLEAR; BILIRUBIN,URINE NEGATIVE (NEGATIVE); COLOR,URINE STRAW; GLUCOSE, URINE 150 mg/dL (NEGATIVE); KETONES,URINE NEGATIVE (NEGATIVE); LEUKOCYTE ESTERASE,URINE NEGATIVE (NEGATIVE); NITRITE,URINE NEGATIVE (NEGATIVE); PROTEIN,URINE NEGATIVE (NEGATIVE); URINE SPECIFIC GRAVITY 1.006; UROBILINOGEN,URINE NEGATIVE mg/dL (<2.0)
[2019-12-18 01:46] LABS: ABSOLUTE BASOPHILS # (AUTO) 0.1 10^3/uL (0.0-0.2); ABSOLUTE EOSINOPHILS # (AUTO) 0.5 10^3/uL (0.0-0.6); ABSOLUTE LYMPHOCYTES (AUTO) 3.4 10^3/uL (0.5-4.7); ABSOLUTE NEUT (AUTO) 9.4 10^3/uL (1.7-8.2); BASOPHILS % (AUTO) 0.7 % (0-2); EOSINOPHILS % (AUTO) 3.5 % (0-6); HEMATOCRIT 34.7 % (37.9-51.0); HEMOGLOBIN 11.6 g/dL (13.5-17.0); LYMPHOCYTES % (AUTO) 23.4 % (13-45); MEAN CORPUSCULAR HEMOGLOBIN 27.5 pg (27.0-33.4); MEAN CORPUSCULAR HGB CONC 33.3 g/dL (32.0-36.0); MEAN CORPUSCULAR VOLUME 82 fl (80-97); MONOCYTES % (AUTO) 7.1 % (3-13); PLATELET COUNT 306 10^3/uL (150-450); RED BLOOD COUNT 4.21 10^6/uL (4.35-5.55); RED CELL DISTRIBUTION WIDTH 14.3 % (11.5-14.0); SEGMENTED NEUTROPHILS % (AUTO) 65.3 % (42-78); TOTAL CELLS COUNTED % (AUTO) 100 %; WHITE BLOOD COUNT 14.5 10^3/uL (4.0-10.5)
[2019-12-18 02:06] LABS: ALBUMIN 3.9 g/dL (3.5-5.0); ALKALINE PHOSPHATASE 105 U/L (38-126); ANION GAP 8 (5-19); ASPARTATE AMINO TRANSFERASE 19 U/L (17-59); BILIRUBIN,TOTAL 0.4 mg/dL (0.2-1.3); BLOOD UREA NITROGEN 9 mg/dL (7-20); CALCIUM 9.3 mg/dL (8.4-10.2); CARBON DIOXIDE 34 mmol/L (22-30); CHLORIDE 96 mmol/L (98-107); GLUCOSE 240 mg/dL (75-110); TOTAL PROTEIN 7.1 g/dL (6.3-8.2)
[2019-12-18] MEDS ORDERED: POTASSIUM CHLORIDE 10 MEQ TABLET.ER PO ONE (02:25)
[2019-12-18] MEDS ORDERED: LISINOPRIL 10 MG TABLET PO ONE (02:25)
--- NOTE | 2019-12-18 03:28 | ER Document Report ---
Entered by WAN BENNETT SCRIBE 12/18/19 0223 Acting as scribe for:CHAO SPICER IV, MD ED Blood Pressure Problem - General Chief Complaint: High Blood Pressure Stated Complaint: BLOOD PRESSURE CHECK Time Seen by Provider: 12/17/19 21:19 Primary Care Provider: JUNE SAWANT FNP-C [Primary Care Provider] - Follow up as needed Mode of Arrival: Ambulatory Information source: Patient, Relative Notes: This 54 year old male patient presents to the ED today accompanied by his with complaints of an episode of dizziness related to hypertension that occurred prior to arrival. states that the patient's blood pressure was 204/120. She reports that the patient was admitted at [facility] from 12/21/19-12/28/19 for JORGE and received dialysis while there. She further reports that the patient was taken off all of his daily medications at that time and there was some confusion as to what provider (PCP or case checker) she had to speak with to restart the patient's medications. She states that the patient has been off of his Lisinopril for over x2 weeks. Denies any other complaints. TRAVEL OUTSIDE OF THE [place] IN LAST 30 DAYS: No - Related Data Allergies/Adverse Reactions: Penicillins Allergy (Verified 08/07/16 20:23) Anaphylaxis Sulfa (Sulfonamide Antibiotics) Allergy (Verified 08/07/16 20:23) EYE SWELLING Past Medical History - General Information source: Patient, [facility] Records - Social History Smoking Status: Unknown if Ever Smoked Smoking Education Provided: No Lives with: Spouse/Significant other Family History: Reviewed & Not Pertinent, CAD, DM Patient has suicidal ideation: No Patient has homicidal ideation: No - Past Medical History Cardiac Medical History: Reports: Hx Coronary Artery Disease, Hx Hypercholesterolemia, Hx Hypertension Neurological Medical History: Reports: Hx Cerebrovascular Accident Endocrine Medical History: Reports: Hx Diabetes Mellitus Type 2 Psychiatric Medical History: Reports: Hx Depression Past Surgical History: Reports: Hx Appendectomy, Hx Bowel Surgery, Hx Cardiac Surgery, Hx Cholecystectomy, Hx Coronary Artery Bypass Graft - 5 VESSEL, Hx Neurologic Surgery, Hx Orthopedic Surgery - spine, Hx Tonsillectomy - Immunizations Hx Diphtheria, Pertussis, Tetanus Vaccination: Yes Review of Systems - Review of Systems Constitutional: See HPI, Other - Hypertension EENT: No symptoms reported Cardiovascular: See HPI, Dizziness Respiratory: No symptoms reported Gastrointestinal: No symptoms reported Genitourinary: No symptoms reported Male Genitourinary: No symptoms reported Musculoskeletal: No symptoms reported Skin: No symptoms reported Hematologic/Lymphatic: No symptoms reported Neurological/Psychological: No symptoms reported -: Yes All other systems reviewed and negative Physical Exam - Vital signs Vitals: Temp Pulse Resp BP Pulse Ox 98.6 F 93 18 161/80 H 100 12/17/19 20:43 12/17/19 20:43 12/17/19 20:43 12/17/19 20:43 12/17/19 20:43 Interpretation: Hypertensive - General General appearance: Alert In distress: None - HEENT Head: Normocephalic, Atraumatic Eyes: Normal Pupils: PERRL - Respiratory Respiratory status: No respiratory distress Chest status: Nontender Breath sounds: Normal Chest palpation: Normal - Cardiovascular Rhythm: Regular Heart sounds: Normal auscultation Murmur: No Friction rub: No Gallop: None auscultated - Abdominal Inspection: Normal Distension: No distension Bowel sounds: Normal Tenderness: Nontender - Abdomen soft Organomegaly: No organomegaly - Back Back: Normal, Nontender - Extremities General upper extremity: Normal inspection General lower extremity: Normal inspection - Neurological Neuro grossly intact: Yes Orientation: AAOx4 [place] Coma Scale Eye Opening: Spontaneous [place] Coma Scale Verbal: Oriented [place] Coma Scale Motor: Obeys Commands [place] Coma Scale Total: 15 - Psychological Associated symptoms: Normal affect, Normal mood - Skin Skin Temperature: Warm Skin Moisture: Dry Skin Color: Normal Course - Re-evaluation Re-evalutation: 12/18/19 03:31 Patient's blood pressure is currently 150/90. Results of ED MSE discussed with patient and patient's spouse. All questions were answered prior to discharge. Emergency signs and symptoms, reasons to return to the emergency department discussed with patient and patient's spouse. Given that the patient is currently not showing any evidence of acute renal failure, his potassium is low and his blood pressure is high and he is not responding well to the Humalog, this MD recommended that the patient resume his metformin, his potassium, and is lisinopril and stop his Humalog, the caveat being that they must follow-up with their regular primary care provider on 12/20/2019. - Vital Signs Vital signs: Temp Pulse Resp BP Pulse Ox 98.6 F 93 18 180/98 H 100 12/17/19 20:43 12/17/19 20:43 12/17/19 20:43 12/18/19 03:01 12/17/19 20:43 - Laboratory Result Diagrams: 12/18/19 01:35 12/18/19 01:35 Laboratory results interpreted by me: 12/17/19 12/18/19 12/18/19 22:27 01:35 01:35 WBC 14.5 H RBC 4.21 L Hgb 11.6 L Hct 34.7 L RDW 14.3 H Absolute Neuts (auto) 9.4 H Potassium 3.0 L* Chloride 96 L Carbon Dioxide 34 H Glucose 240 H NT-Pro-B Natriuret Pep Urine Glucose (UA) 150 H 12/18/19 01:35 WBC RBC Hgb Hct RDW Absolute Neuts (auto) Potassium Chloride Carbon Dioxide Glucose NT-Pro-B Natriuret Pep 2090 H Urine Glucose (UA) - Diagnostic Test Radiology reviewed: Reports reviewed Discharge - Discharge Clinical Impression: Elevated blood pressure reading, Hypokalemia Condition: Stable Disposition: HOME, SELF-CARE Additional Instructions: Given that you are showing no signs of renal failure this time, it is reasonable to restart your lisinopril, your potassium and your Metformin and stop your Humalog. You have agreed to follow-up with your primary care provider on 12/20/2019 to reassess your blood work and your medications. Be certain to do this without fail. Return to the Emergency Department without delay if any worse. HOME CARE INSTRUCTIONS & INFORMATION: Thank you for choosing us for your medical needs. We hope you're satisfied with the care you received. After you leave, you must properly care for your problem and, at the same time, observe its progress. Any condition can change. Some illnesses can change rapidly over hours or days. If your condition worsens, return to the Emergency Department or see your physician promptly. ABOUT YOUR X-RAYS AND EKG'S: If you had an EKG or X-rays taken, they have been read by the Emergency Physician. The X-rays and EKG's will also be read by a Radiologist or Airframe Design Engineer within 24 hours. If discrepancies are noted, you will be notified by telephone. Please be certain the ED has a correct telephone number & address where you can be reached. Also, realize that some fractures or abnormalities do not show up on initial X-rays. If your symptoms continue, see your physician. ABOUT YOUR LABORATORY TEST: If you had laboratory tests, the results have been reviewed by the Emergency Physician. Some test results (for example cultures) may not be available for several days. You will be contacted if any test result shows you need additional treatment. Please be certain the ED has a correct telephone number and address where you can be reached. ABOUT YOUR MEDICATIONS: You will receive instructions on how to take your medicine on the prescription label you receive. Additional information may be provided by the Pharmacy. If you have questions afterwards, call the ED for clarification or further instructions. Some prescribed medications may cause drowsiness. Do not perform tasks such as driving a car or operating machinery without consulting your Pharmacist. If you feel you need a refill of pain medication, your condition will need re-evaluation. Please do not call for a refill of any medication. ABOUT YOUR SIGNATURE: Signature of this document acknowledges to followin. Understanding that you received emergency treatment and that you may be released before al medical problems are known or treated. Please be certain the ED has a correct phone number & address where you can be reached. 2. Acknowledgement that you will arrange for follow-up care as recommended. 3. Authorization for the Emergency Physician to provide information to your follow-up Physician in order to maximize your care. AT ANY TIME, IF YOUR SYMPTOMS CHANGE SIGNIFICANTLY OR WORSEN OR YOU DEVELOP NEW SYMPTOMS, RETURN TO THE EMERGENCY DEPARTMENT IMMEDIATELY FOR RE-EVALUATION. OUR GOAL IS TO PROVIDE EXCELLENT MEDICAL CARE! WE HOPE THAT WE HAVE MET YOUR EXPECTATIONS DURING YOUR EMERGENCY DEPARTMENT VISIT AND THAT YOU FEEL YOU HAVE RECEIVED EXCELLENT CARE! Referrals: JUNE SAWANT, JUAN-C [Primary Care Provider] - 12/20/19 I personally performed the services described in the documentation, reviewed and edited the documentation which was dictated to the scribe in my presence, and it accurately records my words and actions.
[2019-12-18 03:48] VITALS: BP 152/79
== END 2019-12-18 03:48 | disposition home or self-care (01) ==
LOC: ER 20:26
DX: E87.6 Hypokalemia (principal); I10 Essential (primary) hypertension; R42 Dizziness and giddiness; Z88.0 Allergy status to penicillin; Z88.2 Allergy status to sulfonamides; I25.10 Atherosclerotic heart disease of native coronary artery without angina pectoris; E11.9 Type 2 diabetes mellitus without complications
CPT/HCPCS: 99283; 36415; 85025; 80053; 81001; 83880; 71046; A9270 ×2